=== PATIENT | female | born 2005 | race Caucasian/White ===

== ENCOUNTER 2024-03-08 14:24 | Emergency (ER) | payer MEDICAID ==
[~2024-03-08] VITALS: Ht 172.7 cm; Wt 77.2 kg
[2024-03-08 15:22] LABS: BASOPHILS # (AUTO) 0.2 X10'3 (0-0.2); BASOPHILS % (AUTO) 2.5 % (0-1); EOSINOPHILS # (AUTO) 0.1 X10'3 (0-0.9); EOSINOPHILS % (AUTO) 0.7 % (0-6); HEMATOCRIT 38.2 % (35.0-45.0); HEMOGLOBIN 12.9 g/dl (12.0-16.0); LYMPHOCYTES # (AUTO) 1.3 X10'3 (1.1-4.8); LYMPHOCYTES % (AUTO) 17.5 % (21-51); MEAN CORPUSCULAR HEMOGLOBIN 28.9 PG (27.0-31.0); MEAN CORPUSCULAR HGB CONC 33.9 g/dL (33.0-36.5); MEAN CORPUSCULAR VOLUME 85.3 FL (78-98); MEAN PLATELET VOLUME 9.8 FL (7.4-10.4); MONOCYTES # (AUTO) 0.3 X10'3 (0-0.9); MONOCYTES % (AUTO) 3.4 % (2-12); NEUTROPHILS # (AUTO) 5.7 X10'3 (1.8-7.7); NEUTROPHILS % (AUTO) 75.9 % (42-75); PLATELET COUNT 209 X10'3 (140-440); RED BLOOD COUNT 4.48 X10'6 (4.20-5.60); RED CELL DISTRIBUTION WIDTH 12.8 % (11.5-14.5); WHITE BLOOD COUNT 7.5 X10'3 (4.5-11.0)
[2024-03-08 15:23] LABS: BILIRUBIN,URINE NEGATIVE (Neg); CLARITY,URINE CLEAR (Clear); COLOR,URINE YELLOW (Yellow); GLUCOSE, URINE NEGATIVE (Neg); KETONES,URINE NEGATIVE (Neg); LEUKOCYTE ESTERASE ,URINE NEGATIVE (Neg); NITRITES, URINE NEGATIVE (Neg); OCCULT BLOOD,URINE NEGATIVE (Neg); PROTEIN,URINE NEGATIVE (Neg); URINE HCG NEGATIVE (NEG); UROBILINOGEN,URINE 0.2 E.U/dL (0.2-1.0)
[2024-03-08 15:24] LABS: UA COLLECTION TYPE CLN CATCH MIDSTREAM
[2024-03-08 15:40] LABS: ALANINE AMINOTRANSFERASE 17 U/L (12-78); ALBUMIN 3.7 G/DL (3.4-5.0); ALKALINE PHOSPHATASE 48 IU/L (46-116); ANION GAP 10 (8-16); ASPARTATE AMINO TRANSFERASE 15 U/L (10-37); BILIRUBIN,TOTAL 0.4 MG/DL (0.1-1.0); BLOOD UREA NITROGEN 13 MG/DL (7-18); BUN/CREATININE RATIO 17.3 (10.0-20.0); CALCIUM 8.4 MG/DL (8.5-10.1); CHLORIDE 103 MMOL/L (99-107); CREATININE 0.75 MG/DL (0.40-0.90); GLUCOSE 121 MG/DL (70-104); LIPASE 36 U/L (16-77); POTASSIUM 3.4 MMOL/L (3.5-5.1); SODIUM 139 MMOL/L (135-145); TOTAL CARBON DIOXIDE 25.8 MMOL/L (24-32); TOTAL PROTEIN 7.3 G/DL (6.4-8.2); eCRCL 120 ML/MIN; eGFR > 90 ML/MIN
[2024-03-08] MEDS ORDERED: PHEN51CR24 TOP (16:44)
[2024-03-08] MEDS ORDERED: POLY119P2 PO (16:44)
[2024-03-08 16:50] VITALS: BP 119/94; PULSE 78; RESP 16; TEMP 98; O2SAT 100
== END 2024-03-08 16:52 | disposition home or self-care (01) ==
LOC: ER 14:24
DX: K92.1 Melena (principal); Z88.1 Allergy status to other antibiotic agents; Z79.899 Other long term (current) drug therapy
CPT/HCPCS: 36415; 80053; 81003; 81025; 83690; 85025; 99283

== ENCOUNTER 2024-07-09 10:46 | Emergency (ER) | payer MEDICAID ==
[~2024-07-09] VITALS: Ht 170.2 cm; Wt 77.8 kg
[~2024-07-09 10:46] MED LIST: PHEN51CR24 TOP; POLY119P2 PO
[2024-07-09 11:08] VITALS: TEMP 97.5
[2024-07-09 11:49] LABS: BILIRUBIN,URINE NEGATIVE (Neg); CLARITY,URINE CLEAR (Clear); COLOR,URINE YELLOW (Yellow); GLUCOSE, URINE NEGATIVE (Neg); KETONES,URINE NEGATIVE (Neg); LEUKOCYTE ESTERASE ,URINE NEGATIVE (Neg); NITRITES, URINE NEGATIVE (Neg); OCCULT BLOOD,URINE LARGE (Neg); PH,URINE 7.5 (4.8-8.0); PROTEIN,URINE NEGATIVE (Neg); UROBILINOGEN,URINE 0.2 E.U/dL (0.2-1.0)
[2024-07-09 11:53] LABS: URINE HCG NEGATIVE (NEG)
[2024-07-09 12:02] LABS: UA COLLECTION TYPE CLN CATCH MIDSTREAM
[2024-07-09 12:03] LABS: BACTERIA,URINE FEW /HPF (Neg); MUCUS STRANDS MODERATE /LPF (Neg); RBC,URINE TNTC /HPF (0-2); SQUAMOUS EPITHELIAL CELL,UR FEW /LPF (FEW); WBC,URINE 0-4 /HPF (0-4)
[2024-07-09 12:30] LABS: BASOPHILS % (AUTO) 0.6 % (0-1); EOSINOPHILS % (AUTO) 0.7 % (0-6); HEMATOCRIT 39.7 % (35.0-45.0); HEMOGLOBIN 13.3 g/dl (12.0-16.0); LYMPHOCYTES # (AUTO) 1.8 X10'3 (1.1-4.8); LYMPHOCYTES % (AUTO) 31.4 % (21-51); MEAN CORPUSCULAR HGB CONC 33.6 g/dL (33.0-36.5); MEAN CORPUSCULAR VOLUME 86.4 FL (78-98); MEAN PLATELET VOLUME 9.7 FL (7.4-10.4); MONOCYTES # (AUTO) 0.3 X10'3 (0-0.9); MONOCYTES % (AUTO) 5.8 % (2-12); NEUTROPHILS # (AUTO) 3.6 X10'3 (1.8-7.7); NEUTROPHILS % (AUTO) 61.5 % (42-75); PLATELET COUNT 194 X10'3 (140-440); RED BLOOD COUNT 4.59 X10'6 (4.20-5.60); RED CELL DISTRIBUTION WIDTH 12.9 % (11.5-14.5); WHITE BLOOD COUNT 5.8 X10'3 (4.5-11.0)
[2024-07-09 12:54] LABS: ALBUMIN 4.3 G/DL (3.4-5.0); ANION GAP 6 (8-16); BLOOD UREA NITROGEN 10 MG/DL (7-18); BUN/CREATININE RATIO 15.6 (10.0-20.0); CALCIUM 9.1 MG/DL (8.5-10.1); CHLORIDE 106 MMOL/L (99-107); CREATININE 0.64 MG/DL (0.40-0.90); GLUCOSE 88 MG/DL (70-104); POTASSIUM 3.9 MMOL/L (3.5-5.1); SODIUM 139 MMOL/L (135-145); TOTAL CARBON DIOXIDE 27.4 MMOL/L (24-32); eCRCL 135 ML/MIN; eGFR > 90 ML/MIN
[2024-07-09] MEDS ORDERED: LOPE2CAP PO (13:10)
[2024-07-09] MEDS ORDERED: DICY10CA88 PO (13:10)
[2024-07-09 13:32] VITALS: BP 112/73; PULSE 65; RESP 18; O2SAT 99
== END 2024-07-09 13:39 | disposition home or self-care (01) ==
LOC: ER 10:47
DX: R19.7 Diarrhea, unspecified (principal); R10.84 Generalized abdominal pain; M54.9 Dorsalgia, unspecified; R12 Heartburn; R53.83 Other fatigue; Z88.1 Allergy status to other antibiotic agents; Z79.899 Other long term (current) drug therapy
CPT/HCPCS: 36415; 80048; 81001; 81025; 84145; 85025; 99283

== ENCOUNTER 2024-11-24 09:10 | Outpatient (CLI) | payer MEDICAID ==
[~2024-11-24 09:10] MED LIST changes: +LOPE2CAP PO
== END 2024-11-24 23:59 | disposition home or self-care (01) ==
LOC: MRI02 09:10
PROVIDERS: ATTEND Pediatrics Sports Medicine
DX: M54.50 Low back pain, unspecified (principal); M46.1 Sacroiliitis, not elsewhere classified
CPT/HCPCS: 72148

== ENCOUNTER 2025-01-14 17:42 | Emergency (ER) | payer MEDICAID ==
[~2025-01-14] VITALS: Ht 170.2 cm; Wt 77.3 kg
[2025-01-14 17:58] VITALS: BP 114/81; PULSE 90; O2SAT 99
[2025-01-14 20:02] VITALS: RESP 14
[2025-01-14] MEDS: ketorolac trometh 15mg/ml vial 15 MG/ML ML IM ONE (20:02)
[2025-01-14] MEDS: diphenhydrAMINE 25mg capsule PO ONE (20:03)
[2025-01-14] MEDS: proCHLORperazine 10 MG/2 ml inj IM ONE (20:03)
[2025-01-14 21:26] VITALS: TEMP 98.4
== END 2025-01-14 21:34 | disposition home or self-care (01) ==
LOC: ER 17:43
DX: G43.909 Migraine, unspecified, not intractable, without status migrainosus (principal); R07.89 Other chest pain; F41.9 Anxiety disorder, unspecified; Z88.1 Allergy status to other antibiotic agents; Z79.899 Other long term (current) drug therapy
CPT/HCPCS: 71046; 93005; 96372; 99284; J0780; J1885; Q0163